=== PATIENT | female | born 1950 | race Caucasian/White ===

== ENCOUNTER → 2019-07-17 08:22 | Outpatient (BNVA) | payer MEDICARE, SELFPAY | PROVIDERS: Family Provider Nurse Practitioner; PCP Nurse Practitioner; Visit Provider Nurse Practitioner | DX: M10.9 Gout, unspecified (principal); I10 Essential (primary) hypertension; E78.2 Mixed hyperlipidemia; N18.9 Chronic kidney disease, unspecified; E55.9 Vitamin D deficiency, unspecified; N39.0 Urinary tract infection, site not specified | CPT/HCPCS: 80053; 80061; 81003; 82306; 82310; 82570; 83970; 84156; 84550; 85025; 87077; 87086; 87186 ==

== ENCOUNTER 2019-08-04 13:20 | Outpatient (CLI) | payer MEDICARE, SELFPAY ==
--- NOTE | 2019-08-04 13:33 | XR_ITS ---
WS: [id number] INDICATION: Hydrocephalus TECHNIQUE: Shunt series FINDINGS: Right frontal shunt catheter tip directed towards the midline. Shunt tubing projected over the calvarium and neck appear intact. Shunt tubing projects of the right hemithorax and crosses midli ne in the abdomen. Shunt tip in the pelvis. Shunt tubing appears intact. Thoracic scoliosis and kyphosis. XR/XR shunt series IMPRESSION: Intact shunt tubing
--- NOTE | 2019-08-04 13:33 | CT_ITS ---
WS: [id number] CT HEAD TECHNIQUE: Noncontrast CT of the head obtained from the skullbase to the vertex. CLINICAL INFORMATION: HYDROCEPHALUS COMPARISON: August 06, 2018 DLP: 1058.[address] scans at [facility] use at least one of these dose optimization techniques: automat ed exposure control; mA and/or kV adjustment per patient size (includes targeted exams where dose is matched to clinical indication); or iterative reconstruction. FINDINGS: No evidence of intracranial hemorrhage or mass effect. Right shunt catheter with tip in the right fro ntal horn along the septum pellucidum. Advanced compensated ventricular dilatation with dilatation of the basilar cisterns. This is unchanged from previous. No transependymal edema. Ventricular Size is unchanged. Moderate parenchymal volume loss. No extra-axial fluid collections. Paranasal sinuses and mastoid air cells well aerated. CT/CT head wo con* [id number] IMPRESSION: 1. Advanced chronic compensated communicating hydrocephalus. Ventricular size i s stable from previous. 2. Right frontal shunt catheter with tip along the right frontal horn unchanged . 3. Moderate parenchymal volume loss.
== END 2019-08-04 13:21 | disposition home or self-care (01) ==
LOC: RADWPI 13:24
PROVIDERS: Family Provider Nurse Practitioner; PCP Nurse Practitioner; Visit Provider Specialist
DX: G91.9 Hydrocephalus, unspecified (principal); Z98.2 Presence of cerebrospinal fluid drainage device
CPT/HCPCS: 70250; 70450; 71046; 72040; 74019

== ENCOUNTER → 2019-08-07 09:03 | Outpatient (BNVA) | payer MEDICARE, SELFPAY | PROVIDERS: Family Provider Nurse Practitioner; PCP Nurse Practitioner; Visit Provider Nurse Practitioner | DX: N39.0 Urinary tract infection, site not specified (principal); B96.20 Unspecified Escherichia coli [E. coli] as the cause of diseases classified elsewhere; N18.9 Chronic kidney disease, unspecified | CPT/HCPCS: 81000 ==

== ENCOUNTER → 2019-10-16 08:21 | Outpatient (BNVA) | payer MEDICARE, SELFPAY | PROVIDERS: Family Provider Nurse Practitioner; PCP Nurse Practitioner; Visit Provider Nurse Practitioner | DX: M10.9 Gout, unspecified (principal); I10 Essential (primary) hypertension | CPT/HCPCS: 80053; 84550 ==

== ENCOUNTER → 2020-01-12 09:10 | Outpatient (BNVA) | payer MEDICARE, SELFPAY | PROVIDERS: Family Provider Nurse Practitioner; PCP Nurse Practitioner; Visit Provider Nurse Practitioner | DX: I10 Essential (primary) hypertension (principal); E55.9 Vitamin D deficiency, unspecified | CPT/HCPCS: 80053; 80061; 82306; 83735; 85025 ==

== ENCOUNTER → 2020-04-28 09:15 | Outpatient (BNVA) | payer MEDICARE, SELFPAY | PROVIDERS: Family Provider Nurse Practitioner; PCP Nurse Practitioner; Visit Provider Nurse Practitioner | DX: I12.9 Hypertensive chronic kidney disease with stage 1 through stage 4 chronic kidney disease, or unspecified chronic kidney disease (principal); M10.9 Gout, unspecified; E78.2 Mixed hyperlipidemia | CPT/HCPCS: 80053; 85025 ==

== ENCOUNTER → 2020-07-26 09:36 | Outpatient (BNVA) | payer MEDICARE, SELFPAY | PROVIDERS: Family Provider Nurse Practitioner; PCP Nurse Practitioner; Visit Provider Nurse Practitioner | DX: I10 Essential (primary) hypertension (principal); M10.9 Gout, unspecified; E78.2 Mixed hyperlipidemia; Z86.19 Personal history of other infectious and parasitic diseases; E55.9 Vitamin D deficiency, unspecified | CPT/HCPCS: 80053; 80061; 82306; 84443 ==

== ENCOUNTER → 2020-10-18 09:04 | Outpatient (BNVA) | payer MEDICARE, SELFPAY | PROVIDERS: Family Provider Nurse Practitioner; PCP Nurse Practitioner; Visit Provider Nurse Practitioner | DX: I10 Essential (primary) hypertension (principal); M10.9 Gout, unspecified; E78.2 Mixed hyperlipidemia | CPT/HCPCS: 80048 ==

== ENCOUNTER → 2021-01-16 08:38 | Outpatient (BNVA) | payer MEDICARE, SELFPAY | PROVIDERS: Family Provider Nurse Practitioner; PCP Nurse Practitioner; Visit Provider Nurse Practitioner | DX: I10 Essential (primary) hypertension (principal); E55.9 Vitamin D deficiency, unspecified | CPT/HCPCS: 80053; 80061; 82306; 82607; 84443 ==

== ENCOUNTER → 2021-04-21 09:19 | Outpatient (BNVA) | payer MEDICARE, SELFPAY | PROVIDERS: Family Provider Nurse Practitioner; PCP Nurse Practitioner; Visit Provider Nurse Practitioner | DX: I10 Essential (primary) hypertension (principal); M10.9 Gout, unspecified | CPT/HCPCS: 80053; 80061; 82306; 84550; 85025 ==

== ENCOUNTER → 2021-11-15 11:22 | Outpatient (BNVA) | payer MEDICARE, SELFPAY | PROVIDERS: Family Provider Nurse Practitioner; PCP Nurse Practitioner; Visit Provider Nurse Practitioner | DX: M10.9 Gout, unspecified (principal); I10 Essential (primary) hypertension; L50.9 Urticaria, unspecified; B02.29 Other postherpetic nervous system involvement; E78.2 Mixed hyperlipidemia; E55.9 Vitamin D deficiency, unspecified; Z23 Encounter for immunization | CPT/HCPCS: 71046; 80053; 80061; 82306; 82310; 83970; 84443; 85025 ==

== ENCOUNTER 2022-01-26 09:14 | Emergency (ER) | payer MEDICARE, SELFPAY ==
[2022-01-26] VITALS (71 sets, daily range): BP systolic 114–138; BP diastolic 69–96; PULSE 83–124; RESP 10–29; TEMP 37.2; O2SAT 88–100; BMI 28.1
--- NOTE | 2022-01-26 09:29 | XRR_ITS ---
PROCEDURE INFORMATION: Exam: XR Chest Exam date and time: 01/26/2022 9:56 AM Age: 71 years old Clinical indication: Other: Weakness TECHNIQUE: Imaging protocol: Radiologic exam of the chest. Views: 1 view. Total images: 2 COMPARISON: CR XR chest 2V* [id number] 11/15/2021 11:21 AM FINDINGS: Tubes, catheters and devices: Ventriculoperitoneal shunt is present. Lungs: Trace atelectasis or scar noted in the left lung base. Trace atelectasis or scar noted in the right mid lung. Pleural spaces: Unremarkable. No pleural effusion. No pneumothorax. Heart/Mediastinum: Unremarkable. No cardiomegaly. Bones/joints: Osseous structures are unchanged from the prior exam. XR/XR chest 1V portable [id number] IMPRESSION: 1. Trace atelectasis or scar noted in the left lung base. 2. Trace atelectasis or scar noted in the right mid lung.
--- NOTE | 2022-01-26 09:39 | ECG_ITS ---
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 Measurements Intervals [place] Rate: 100 P: 49 NE: 146 QRS: 34 QRSD: 110 T: 2 QT: 379 QTc: 490 Interpretive Statements SINUS TACHYCARDIA WITH OCCASIONAL SUPRAVENTRICULAR PREMATURE COMPLEXES INCOMPLETE RIGHT BUNDLE BRANCH BLOCK [90+ ms QRS DURATION, TERMINAL R IN V1/V2, 40+ ms S IN I/aVL/V4/V5/V6] ABNORMAL RHYTHM ECG No previous ECG available for comparison Electronically Signed On 01-26-2022 13:46:42 DIRECTOR OF INDIVIDUAL GIVING by Cecil Blair M.D. [email or web address]
[2022-01-26 09:46] LABS: Basophils % 0.3 %; Eosinophils # 0.1 10^3/uL (0.0-0.8); Eosinophils % 0.8 %; Hematocrit 46.7 % (37.0-47.0); Hemoglobin 16.3 g/dL (11.5-15.3); Lymphocytes # 0.8 10^3/uL (0.8-4.8); Lymphocytes % 12.7 %; Mean Corpuscular HGB Conc 34.9 g/dL (30.0-36.0); Mean Corpuscular Hemoglobin 33.1 pg (28.0-34.0); Mean Corpuscular Volume 94.9 fl (81-99); Mean Platelet Volume 9.8 fL (7.4-10.4); Monocytes # 0.5 10^3/uL (0.2-0.9); Monocytes % 7.2 %; Neutrophils # 4.86 10^3/uL (1.8-7.7); Neutrophils % 78.4 %; Nucleated Red Blood Cells % 0 %; Platelet Count 367 10^3/cmm (130-400); Red Blood Count 4.92 10^6/uL (4.1-5.3); Red Cell Distribution Width 13.2 % (12.1-15.1); White Blood Count 6.2 10^3/uL (4.0-10.0)
[2022-01-26] MEDS: sodium chloride 0.9% 1,000 ML 999 ML IV (09:46)
--- NOTE | 2022-01-26 09:51 | ED_ITS ---
HPI - Weakness General: Chief complaint: Weakness Stated complaint: Weakness Time Seen by Provider: 01/26/22 09:16 History of Present Illness: Toyin is a 71-year-old female who presents by private vehicle with her and her daughter. She has been sick for about 2 weeks. It started as a cold . She has chronic disability and normally is using a walker. She has gotten too weak and now can barely get around even with her walker. She has had decreased appetite. She feels like she has a lump in her throat and has not been able to take her pills for the last 2 days. Delia roland reports she is having a loose stool about once a day or every other day. She is eating only Jell-O and applesauce over the last few days. She has had a cough and it sounds like there is chest congestion to the daughter. Daughter has seen some clear sputum but nothing discolored. There has not been any altered mental status. She has chronic urine incontinence and wears a depends. Daughter states that it is foul-smelling and is concerned there may be some infection. No known fever. No rashes or wounds. Associated symptoms: Denies chest pain, chills, dysuria, fever(s), nausea, syncope or vomiting Review of Systems General: Reports: 10 or more systems reviewed and unremarkable except in HPI and below Const: Denies: fever(s), chills or body aches Eyes: Denies: change in vision Card: Denies: chest pain, edema or syncope GI: Denies: abdominal pain, nausea or vomiting : Denies: flank pain, dysuria or urinary frequency Musc: Denies: neck pain, back pain, extremity pain or extremity swelling Skin/Breast: Denies: rash or erythema Neuro: Denies: numbness in extremities PFS ED PFSH: Medical History CKD (chronic kidney disease) Gout History of herpes zoster HTN, goal below 140/80 Hydrocephalus Mixed hyperlipidemia Presence of programmable ventriculoperitoneal shunt Vitamin D deficiency Surgical History History of foot surgery left removal foreign body toothpick History of hand surgery left fx 4th and 5th metacarpal History of tubal ligation Hx of ventricular shunt Brain 2004 Family History Father Cancer Brain Heart disease Hypertension Mother Cancer Breast Diabetes Sister Diabetes Hypertension Social History Smoking and tobacco status: never smoked Second hand smoke exposure: No Smoking risk assessment/counseling performed?: No Alcohol intake: never Desire information about alcohol rehabilitation?: No Counseling given: No Desire information about substance/drug rehabilitation?: No Counseling given: No Adopted: No Caregiver/support person: No Lives independently: Yes Household members: spouse Housing: House Marital status: service: No Current occupational status: disabled History of recent travel: No Current gender identity: Female Physical Exam Const: COMMON NORMALS: no limitations, alert and well nourished EXAM LIMITATIONS: no altered mental status HENMT: COMMON NORMALS: normocephalic, atraumatic and external ears normal HEAD & SCALP: normocephalic and atraumatic EXTERNAL EAR: Yes external ears normal MOUTH: no muffled voice Eye: COMMON NORMALS: EOMs intact bilaterally, conjunctivae normal and no scleral icterus CONJUNCTIVA: Yes conjunctivae normal Neck/C-Spine: COMMON NORMALS: no JVD GENERAL: Yes normal visual inspection and Yes trachea midline Resp: COMMON NORMALS: normal respiratory effort, No retractions and No use of accessory muscles AUSCULTATION: rales, rhonchi and diminished lung sounds OTHER: Cough present Cardio: COMMON NORMALS: no JVD and regular rhythm RATE: tachycardic RHYTHM: regular rhythm PERIPHERAL PULSES: other (1+ radial pulse) GI: COMMON NORMALS: Soft to palpation and non-tender PALPATION: Yes Soft to palpation and No Guarding due to palpation present (GI) Extremity: COMMON NORMALS: normal to inspection Neuro: COMMON NORMALS: moves all extremities, no focal motor deficits and no sensory deficits noted SENSORIUM/ORIENTATION: Yes alert and No Orientation impaired SPEECH: speech normal Psych: COMMON NORMALS: mental status grossly normal, Normal thought process present, cooperative, normal affect and speech normal SPEECH: Yes normal speech THOUGHT PROCESS: Normal thought process present Skin: COMMON NORMALS: no rashes or lesions noted, turgor normal and no jaundice GENERAL SKIN EXAM: no rashes or lesions noted and turgor normal Course Vital Signs: Vital signs: Vital Signs Temperature 98.9 F 01/26/22 09:16 Pulse Rate 93 01/26/22 12:00 Respiratory Rate 28 H 01/26/22 12:00 Blood Pressure 132/78 01/26/22 12:00 Pulse Oximetry 92 01/26/22 11:55 Oxygen Delivery Me thod 01/26/22 09:16 MDM - Weakness Medical Decision Making Suspicions include pneumonia and urinary tract infection primarily with secondary generalized weakness, dehydration, possible ROSA M and electrolyte abnormalities. Lab Data 01/26/22 09:34 01/26/22 09:34 Radiology Impressions Chest X-Ray 01/26/22 09:29 IMPRESSION: 1. Trace atelectasis or scar noted in the left lung base. 2. Trace atelectasis or scar noted in the right mid lung. Head CT 01/26/22 09:54 IMPRESSION: 1. No acute intracranial pathology detected. 2. Right frontal ventriculostomy tube unchanged in position. 3. Dilated ventricles unchanged in size and configuration. 4. There is moderate diffuse cerebral atrophy present. Laboratory Results WBC 6.2 10^3/uL (4.0-10.0) 01/26/22 09:34 RBC 4.92 10^6/uL (4.1-5.3) 01/26/22 09:34 Hgb 16.3 g/dL (11.5-15.3) H 01/26/22 09:34 Hct 46.7 % (37.0-47.0) 01/26/22 09:34 MCV 94.9 fl (81-99) 01/26/22 09:34 MCH 33.1 pg (28.0-34.0) 01/26/22 09:34 MCHC 34.9 g/dL (30.0-36.0) 01/26/22 09:34 RDW 13.2 % (12.1-15.1) 01/26/22 09:34 Plt Count 367 10^3/cmm (130-400) 01/26/22 09:34 MPV 9.8 fL (7.4-10.4) 01/26/22 09:34 Neut % (Auto) 78.4 % 01/26/22 09:34 Lymph % (Auto) 12.7 % 01/26/22 09:34 [place] % (Auto) 7.2 % 01/26/22 09:34 Eos % (Auto) 0.8 % 01/26/22 09:34 Baso % (Auto) 0.3 % 01/26/22 09:34 Neut # (Auto) 4.86 10^3/uL (1.8-7.7) 01/26/22 09:34 Lymph # (Auto) 0.8 10^3/uL (0.8-4.8) 01/26/22 09:34 [place] # (Auto) 0.5 10^3/uL (0.2-0.9) 01/26/22 09:34 Eos # (Auto) 0.1 10^3/uL (0.0-0.8) 01/26/22 09:34 Baso # (Auto) 0.0 10^3/uL (0.0-0.1) 01/26/22 09:34 Nucleated RBC % (auto) 0 % 01/26/22 09:34 Nucleated RBCs # 0.0 /100WBC 01/26/22 09:34 Sodium 136 mmol/L (136-145) 01/26/22 10:36 Potassium 3.5 mmol/L (3.5-5.1) 01/26/22 10:36 Chloride 100 mmol/L (98-107) 01/26/22 10:36 Carbon Dioxide 27 mmol/L (22-29) 01/26/22 10:36 Anion Gap 12.5 (5-19) 01/26/22 10:36 BUN 22 mg/dL (8-23) 01/26/22 10:36 Creatinine 0.9 mg/dL (0.5-0.9) 01/26/22 10:36 GFR Calculation Not Reportable 01/26/22 10:36 Glucose 90 mg/dL (65-115) 01/26/22 10:36 Calculated Osmolality 285 mOsm/kg (285-295) 01/26/22 10:36 Calcium 8.2 mg/dL (8.5-10.5) L 01/26/22 10:36 Magnesium 1.6 mg/dL (1.7-2.3) L 01/26/22 10:36 Total Bilirubin 0.4 mg/dL (0.15-1.2) 01/26/22 10:36 AST 17 U/L (0-32) 01/26/22 10:36 ALT 14 U/L (0-33) 01/26/22 10:36 Alkaline Phosphatase 134 U/L (35-105) H 01/26/22 10:36 NT-Pro-B Natriuret Pep 143 pg/mL (0-125) H 01/26/22 10:36 NT-Pro-B Natriuret Pep Cancelled 01/26/22 10:36 Total Protein 6.0 g/dL (6.6-8.7) L 01/26/22 10:36 Albumin 3.2 g/dL (3.5-5.2) L 01/26/22 10:36 Globulin 2.8 g/dL (1.3-4.6) 01/26/22 10:36 TSH 1.49 uIU/mL (0.27-4.20) 01/26/22 10:36 Urine Color Yellow (Yellow) 01/26/22 09:56 Urine Appearance Clear (CLEAR) 01/26/22 09:56 Urine pH 5 (5-7) 01/26/22 09:56 Ur Specific [place] 1.020 (1.005-1.030) 01/26/22 09:56 Urine Protein 1+ (Negative) H 01/26/22 09:56 Urine Glucose (UA) Norm (Normal) 01/26/22 09:56 Urine Ketones 1+ (Negative) H 01/26/22 09:56 Urine Blood Neg (Negative) 01/26/22 09:56 Urine Nitrate Negative (Negative) 01/26/22 09:56 Urine Bilirubin 1+ (Negative) H 01/26/22 09:56 Urine Urobilinogen 1 mg/dL (Negative) H 01/26/22 09:56 Ur Leukocyte Esterase Negative (Negative) 01/26/22 09:56 Urine RBC None /hpf (0-2) 01/26/22 09:56 Urine WBC None /hpf (0-5) 01/26/22 09:56 Ur Squamous Epith Cells 15-25 /hpf (0-5) H 01/26/22 09:56 Amorphous Sediment Not Reportable 01/26/22 09:56 Urine Bacteria None /hpf (NONE) 01/26/22 09:56 Urine Mucus 2+ /hpf 01/26/22 09:56 Influenza Type A Ag negative (Negative) 01/26/22 11:52 Influenza Type B Ag negative (Negative) 01/26/22 11:52 SARS-CoV-2 Ag (Rapid) negative (Negative) 01/26/22 11:52 Discharge Plan Discharge Condition: Stable Prescriptions: No Action acetaminophen [Tylenol] 325 mg tablet 325 mg PO QID PRN (Reason: pain) Qty: 1 0RF cetirizine [Zyrtec] 10 mg tablet 10 mg PO DAILY Qty: 90 1RF famotidine [Pepcid] 20 mg tablet 20 mg PO DAILY Qty: 90 1RF furosemide 20 mg tablet 20 mg PO DAILY PRN (Reason: edema) Qty: 90 1RF metoprolol tartrate 100 mg tablet 100 mg PO BID Qty: 180 1RF valsartan [Diovan] 320 mg tablet 320 mg PO DAILY Qty: 90 1RF Rx Instructions: stop Lisinopril (DME) Wheelchair See Rx Instructions .Route .MEDSUPPLY Qty: 1 0RF Rx Instructions: As directed (DME) Hospital Bed See Rx Instructions .Route .MEDSUPPLY Qty: 1 0RF Rx Instructions: As directed venlafaxine 75 mg tablet 75 mg PO BID Qty: 120 0RF Rx Instructions: To replace Cymbalta (PT NOT STARTED YET PER FAMILY 01/26/22) verapamil 180 mg capsule,ext rel. pellets 24 hr 180 mg PO QAM Qty: 60 0RF Rx Instructions: Replace Norvasc. Open capsule put in applesauce (PT NOT STARTED YET PER FAMILY 01/26/22) amlodipine 5 mg tablet 5 mg PO DAILY Aspir-81 81 mg Tablet,Delayed Release (Dr/Ec) 81 mg PO DAILY tamsulosin 0.4 mg capsule 0.4 mg PO QAM vitamin E 268 mg (400 unit) Capsule 268 mg PO DAILY duloxetine 20 mg capsule,delayed release(DR/EC) 20 mg PO BID pravastatin 10 mg tablet 10 mg PO BEDTIME allopurinol 300 mg tablet 300 mg PO QAM Referrals: Molly Tabor [employer] [Primary Care Provider] - Coding Level of Care Code ED Baler Operator for Chg Fwd Exam Comprehensive
--- NOTE | 2022-01-26 09:54 | CTR_ITS ---
PROCEDURE INFORMATION: Exam: CT Head Without Contrast Exam date and time: 01/26/2022 10:01 AM Age: 71 years old Clinical indication: Dizziness and weakness, extremity; Bilateral; Prior surgery; Surgery date: 6+ months; Surgery type: Shunt; Additional info: Shunt present, dizziness, weakness TECHNIQUE: Imaging protocol: Computed tomography of the head without contrast. Total images: 1419 COMPARISON: CT head wo con* [id number] 08/04/2019 1:42 PM RADIATION DOSE METRICS: Total DLP (mGy-cm): 1224.48 FINDINGS: Tubes, catheters and devices: Right frontal ventriculostomy tube unchanged in position. Brain: There is moderate diffuse cerebral atrophy present. Cerebral ventricles: Dilated ventricles unchanged in size and configuration. Paranasal sinuses: Mild mucosal thickening of the paranasal sinuses. Mastoid air cells: Visualized mastoid air cells are well aerated. Bones/joints: Unremarkable. No acute fracture. Soft tissues: Unremarkable. CT/CT head wo con* [id number] IMPRESSION: 1. No acute intracranial pathology detected. 2. Right frontal ventriculostomy tube unchanged in position. 3. Dilated ventricles unchanged in size and configuration. 4. There is moderate diffuse cerebral atrophy present.
--- NOTE | 2022-01-26 09:55 | PC.PHAR ---
PT AND PTS FAMILY VERIFIED PTS MEDICATIONS-AMLODIPINE WAS SUPPOSE TO BE CHANGED TO VERAPAMIL 180MG QAM PTS FAMILY STATES THE PT HASNT STARTED TAKING VERAPAMIL STILL TAKING THE AMLODIPINE-CYMBALTA WAS SUPPOSE TO BE CHANGED TO VENLAFAXINE PLAIN 75MG BID PTS FAMILY STATES NOT STARTED TAKING YET STATES PT STILL TAKING CYMBALTA-NOTES ARE MADE IN THE PHARMACY COMMENTS
[2022-01-26 10:17] LABS: Glucose Urine UA Norm (Normal); Protein Urine 1+ (Negative); Urine Appearance Clear (CLEAR); Urine Color Yellow (Yellow); pH Urine 5 (5-7)
[2022-01-26 10:18] LABS: Add Urine Microscopic? YES; Bilirubin Urine 1+ (Negative); Blood Urine Neg (Negative); Ketones Urine 1+ (Negative); Leukocyte Esterase Urine Negative (Negative); Nitrate Urine Negative (Negative); Urobilinogen Urine 1 mg/dL (Negative)
[2022-01-26 10:28] LABS: Squamous Epithelial Cell Urine 15-25 /hpf (0-5)
[2022-01-26 10:29] LABS: Add Urine Culture? No; Mucus Urine 2+ /hpf
[2022-01-26 11:23] LABS: Alanine Aminotransferase 14 U/L (0-33); Albumin Level 3.2 g/dL (3.5-5.2); Alkaline Phosphatase 134 U/L (35-105); Anion Gap 12.5 (5-19); Aspartate Amino Transferase 17 U/L (0-32); Blood Urea Nitrogen 22 mg/dL (8-23); Calcium 8.2 mg/dL (8.5-10.5); Carbon Dioxide 27 mmol/L (22-29); Chloride 100 mmol/L (98-107); Globulin 2.8 g/dL (1.3-4.6); Glucose 90 mg/dL (65-115); Magnesium 1.6 mg/dL (1.7-2.3); NT Pro B Type Natriuretic Pept 143 pg/mL (0-125); Osmolality Calculated 285 mOsm/kg (285-295); Potassium 3.5 mmol/L (3.5-5.1); Sodium 136 mmol/L (136-145); Thyroid Stimulating Hormone 1.49 uIU/mL (0.27-4.20); Total Bilirubin 0.4 mg/dL (0.15-1.2)
[2022-01-26 12:22] LABS: Influenza A by IFA negative (Negative); Influenza B by IFA negative (Negative)
[2022-01-26 12:23] LABS: SARS Covid-2 Antigen negative (Negative)
--- NOTE | 2022-01-26 12:42 | PC.NURSE ---
per Dr. Estevez, pt was placed on 2L/NC oxygen.
--- NOTE | 2022-01-26 12:45 | CTR_ITS ---
PROCEDURE INFORMATION: Exam: CTA Chest With Contrast Exam date and time: 01/26/2022 12:57 PM Age: 71 years old Clinical indication: Eval for pe, pneumonia, causes of hypoxia TECHNIQUE: Imaging protocol: Computed tomographic angiography of the chest with contrast. 3D rendering (Not supervised by radiologist): MIP and/or 3D reconstructed images were created by the technologist. Contrast material: OMNIPAQUE 350; Contrast volume: 69 ml; Contrast route: INTRAVENOUS (IV); COMPARISON: CR XR chest 1V portable [id number] 01/26/2022 9:56 AM RADIATION DOSE METRICS: Total DLP (mGy-cm): 408.4 FINDINGS: Pulmonary arteries: Pulmonary vasculature is adequately opacified without filling defects or other evidence of acute pulmonary embolism. Aorta: Unremarkable. No aortic aneurysm. No aortic dissection. Lungs: Lung volumes are decreased which may in part be due to body habitus. There are scattered focal ground-glass opacities within the upper and mid lung zones, nonspecific and may be infectious/inflammatory in nature. There is some peribronchial consolidative densities at the lower lung zones more typical of ongoing airway disease with scattered minor atelectatic changes. Pleural spaces: Unremarkable. No pneumothorax. No pleural effusion. Heart: Heart is mildly enlarged. Mild scattered calcification of coronary arteries. No significant pericardial effusion. Lymph nodes: Unremarkable. No enlarged lymph nodes. Diaphragm: Small hiatal hernia. Bones/joints: There are degenerative changes mid lower thoracic spine. No acute bony abnormalities detected. Soft tissues: Unremarkable. CT/CT angio chest PE protcl [id number] IMPRESSION: 1. Negative CT angiogram of the chest. No evidence of acute pulmonary embolism. 2. Decreased lung volumes with scattered focal ground-glass opacities mid to upper lung zones presumed infectious/inflammatory in nature. 3. Mild chronic airway changes lower lung zones with accompanying minor atelectatic changes. 4. Mild cardiomegaly
[2022-01-26] MEDS: iohexol 350 mg/mL 500 mL Btl (per mL) IV (13:01)
--- NOTE | 2022-01-26 14:35 | DCPLANNER ---
change release manager was asked to arrange for home health for the patient. change release manager spoke with patient and patients family about getting home health in the home. change release manager was told that family would like to use [facility] for home health services. change release manager had ER physician put the order in for home health, window caser called Jose Alberto at [facility] and let her know that a referral had been placed for patient for home health services. change release manager was told that [facility] would be able to accept patient and they would contact patient.
--- NOTE | 2022-01-26 16:46 | PC.OT ---
OT Evaluation - Patient discharged before evaluation completed.
== END 2022-01-26 15:21 | disposition home or self-care (01) ==
PROVIDERS: Emergency Provider Emergency Medicine; PCP Nurse Practitioner
DX: R53.1 Weakness (principal); Z79.82 Long term (current) use of aspirin; Z20.822 Contact with and (suspected) exposure to COVID-19; I12.9 Hypertensive chronic kidney disease with stage 1 through stage 4 chronic kidney disease, or unspecified chronic kidney disease; N18.9 Chronic kidney disease, unspecified; E78.2 Mixed hyperlipidemia
CPT/HCPCS: 70450; 71045; 71275; 80053; 81001; 83735; 83880; 84443; 85025; 87426; 87804; 93005; 97161; 99285; J7030; Q9967